=== PATIENT | male | born 1980 | race Caucasian/White ===

== ENCOUNTER 2017-06-18 20:25 | Emergency (ER) | payer MEDICAID ==
[2017-06-18 21:01] VITALS: BP 136/93; PULSE 91; RESP 18; TEMP 98; O2SAT 96
--- NOTE | 2017-06-18 21:12 | C.PDOC ---
History Of Present Illness Pt is a 36 yo, with no significant medical history, who earlier today awoke with gen vague abd pain which has now resolved. He notes 1 episode of vomiting today and multiple episodes of loose stool throughout the day that have resolved. Pt had a lo mein dinner, with no difficulty. Pt states he was sitting on the curb later in the day, dev'd bilat pain to testicles prompting visit. Denies dysuria, penile discharge, or other urinary symptoms. Time Seen by Provider: 06/18/17 21:09 Chief Complaint (Nursing): Abdominal Pain History Per: Patient History/Exam Limitations: no limitations Onset/Duration Of Symptoms: Hrs Current Symptoms Are (Timing): Still Present Radiation Of Pain To:: None Quality Of Discomfort: "Pain" Associated Symptoms: Vomiting (1 episode ). denies: Fever, Chills Exacerbating Factors: None Alleviating Factors: None Last Bowel Movement: Today Recent travel outside of the [place]: No Past Medical History Reviewed: Historical Data, Nursing Documentation, Vital Signs Vital Signs: Last Vital Signs Temp 98 F 06/18/17 21:00 Pulse 91 H 06/18/17 21:00 Resp 18 06/18/17 21:00 BP 136/93 H 06/18/17 21:00 Pulse Ox 96 06/18/17 22:01 Family History: States: Unknown Family Hx - Social History Hx Tobacco Use: Yes Hx Alcohol Use: No Hx Substance Use: No - Immunization History Hx Tetanus Toxoid Vaccination: No Hx Influenza Vaccination: No Hx Pneumococcal Vaccination: No Review Of Systems Constitutional: Negative for: Fever, Chills Gastrointestinal: Positive for: Vomiting, Abdominal Pain Genitourinary: Positive for: Other (inguinal pain). Negative for: Dysuria, Penile Discharge Musculoskeletal: Negative for: Back Pain Physical Exam - Physical Exam Appears: Non-toxic, No Acute Distress Skin: Warm, Dry Head: Atraumatic, Normacephalic Eye(s): bilateral: Normal Inspection, PERRL, EOMI Ear(s): Bilateral: Normal Nose: Normal, No Discharge Oral Mucosa: Moist Throat: Normal, No Erythema, No Exudate Neck: Supple Chest: Symmetrical, No Deformity Cardiovascular: Rhythm Regular (S1 and S2 within normal limits ), No Murmur Respiratory: No Rales, No Rhonchi, No Wheezing, Other (clear to ausculation bilaterally ) Gastrointestinal/Abdominal: Soft, No Tenderness, No Distention, No Guarding, No Rebound Back: No CVA Tenderness Male Genital: No Testicular Tenderness, Circumcised, Other (normal external genitalia, no external lesions. Digital exam through the inguinal canal shows bilateral inguinal hernias that are easily reducible. No masses felt, no epidymal tenderness. ) Extremity: Normal ROM, No Tenderness, No Pedal Edema, No Deformity, No Swelling , Other (no edema, no clubbing, or cyanosis. ) Pulses: Left Dorsalis Pedis: Normal (2+), Right Dorsalis Pedis: Normal (2+) ED Course And Treatment ECG: Interpreted By Me ECG Rhythm: Sinus Rhythm ECG Interpretation: Normal Interpretation Of ECG: nsr at 99bpm..Intervals are wnl,no ectopy no st or t wave changes O2 Sat by Pulse Oximetry: 96 (RA) Medical Decision Making Medical Decision Making: Progress note: On reduction of bilateral hernias, patient notes spontaneous resolution of inguinal pain with this maneuver. Patient referred to follow up with general surgery should hernia continue to be a problem. Disposition - Disposition Referrals: Alcides Penaloza MD [Staff Provider] - Disposition: HOME/ ROUTINE Disposition Time: 21:11 Condition: GOOD Additional Instructions: follow up with surgeon for any further hernia pain Forms: [facility] (Wolof) Print Language: CITIZEN OF [place] - Clinical Impression Clinical Impression: Bilateral inguinal hernia - Scribe Statement The provider has reviewed the documentation as recorded by the Scribe Natalie Manzano All medical record entries made by the Scribe were at my direction and personally dictated by me. I have reviewed the chart and agree that the record accurately reflects my personal performance of the history, physical exam, medical decision making, and the department course for this patient. I have also personally directed, reviewed, and agree with the discharge instructions and disposition.
--- NOTE | 2017-06-23 06:44 | CARD ---
APPROVED REPORT EKG Measurement Heart [id number] <Conclusion> Normal sinus rhythm T wave abnormality, consider inferior ischemia Abnormal ECG
== END 2017-06-18 21:15 | disposition home or self-care (01) ==
LOC: C.ER 20:25
DX: K40.20 Bilateral inguinal hernia, without obstruction or gangrene, not specified as recurrent (principal)

== ENCOUNTER 2018-08-20 12:15 | Emergency (ER) | payer MEDICAID ==
[2018-08-20 12:28] VITALS: BP 149/82; PULSE 69; RESP 16; TEMP 98.3; O2SAT 98
--- NOTE | 2018-08-20 13:10 | C.PDOC ---
History Of Present Illness 37 year old male presents to the ED for evaluation of a painful abscess to the right inguinal region which developed over the past 2-3 days. Patient denies fever, chills, abdominal pain, or drainage from the site. Time Seen by Provider: 08/20/18 12:30 Chief Complaint (Nursing): Abnormal Skin Integrity History Per: Patient History/Exam Limitations: no limitations Onset/Duration Of Symptoms: Days (2-3) Current Symptoms Are (Timing): Still Present Quality Of Symptoms: Painful. denies: Draining Additional History Per: Patient Past Medical History Reviewed: Historical Data, Nursing Documentation, Vital Signs Vital Signs: Last Vital Signs Temp 98.3 F 08/20/18 12:22 Pulse 69 08/20/18 12:22 Resp 16 08/20/18 12:22 BP 149/82 08/20/18 12:22 Pulse Ox 98 08/20/18 12:22 - Medical History PMH: No Chronic Diseases Surgical History: No Surg Hx Family History: States: Unknown Family Hx - Social History Hx Tobacco Use: Yes Hx Alcohol Use: No Hx Substance Use: No - Immunization History Hx Tetanus Toxoid Vaccination: No Hx Influenza Vaccination: No Hx Pneumococcal Vaccination: No Review Of Systems Constitutional: Negative for: Fever, Chills Gastrointestinal: Negative for: Abdominal Pain Skin: Positive for: Other (abscess to right inguinal region. no drainage ) Physical Exam - Physical Exam Appears: Non-toxic, No Acute Distress Skin: Normal Color, Warm, Dry, Other (2cm area of erythema to right inguinal region that is swollen and tender with induration ) Gastrointestinal/Abdominal: Soft, No Tenderness, No Guarding, No Rebound, Hernia (small, reducible ) Extremity: Normal ROM, Capillary Refill (less than 2 seconds ) Neurological/Psych: Oriented x3, Normal Speech, Normal Cognition ED Course And Treatment O2 Sat by Pulse Oximetry: 98 (on RA) Pulse Ox Interpretation: Normal Medical Decision Making Medical Decision Making: Progress: Cleocin PO and Motrin PO given. Disposition - Disposition Referrals: Tabby Mak MD [Staff Provider] - Disposition: HOME/ ROUTINE Disposition Time: 13:11 Condition: STABLE Additional Instructions: Apply warm compresses to the region 4-5 times per day. Return to the ED in 2-3 days for possible abscess drainage or wound check. 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 - Scribe Statement The provider has reviewed the documentation as recorded by the Scribe (Silvia Hagen) All medical record entries made by the Scribe were at my direction and personally dictated by me. I have reviewed the chart and agree that the record accurately reflects my personal performance of the history, physical exam, medical decision making, and the department course for this patient. I have also personally directed, reviewed, and agree with the discharge instructions and disposition.
== END 2018-08-20 13:30 | disposition home or self-care (01) ==
LOC: C.ER 12:15
DX: L03.314 Cellulitis of groin (principal); L02.214 Cutaneous abscess of groin